=== PATIENT | female | born 1990 | race Caucasian/White ===

== ENCOUNTER 2016-10-23 16:54 | Emergency (ER) | payer MEDICAID, OTHER ==
[~2016-10-23] VITALS: Ht 157.5 cm; Wt 47.0 kg
[2016-10-23 18:46] VITALS: Ht 157.5 cm; Wt 47.0 kg
--- NOTE | 2016-10-23 20:07 | ERD ---
ER Documentation Chief Complaint Date/Time DATE: 10/23/16 TIME: 20:04 Chief Complaint vaginal bleed x 1 wk, 3 wks/6days , referred for US, denies pain. HPI Patient is a 25-year-old female, approximately 3 weeks , , who presents to the emergency department with vaginal bleeding. Patient was referred here by her FRIEND OF THE COURT DrNoble Van, for an ultrasound. She states that she's been having vaginal bleeding for one week now. Patient reports using approximately 3 liners per day. She states that her bleeding is light red color. Patient denies any abdominal pain, pelvic pain, nausea, vomiting, pain with urination, fever, chills. LMP= 09/17/16. ROS All systems reviewed and are negative except as per history of present illness. Allergies Allergies: Coded Allergies: No Known Allergy (Unverified , 10/23/16) PMhx/Soc Medical and Surgical Hx: pt denies Medical Hx, pt denies Surgical Hx History of Surgery: No Anesthesia Reaction: No Hx Neurological Disorder: No Hx Respiratory Disorders: No Hx Cardiac Disorders: No Hx Psychiatric Problems: No Hx Miscellaneous Medical Probl: No Hx Alcohol Use: No Hx Substance Use: No Hx Tobacco Use: No FmHx Family History: No diabetes Physical Exam Vitals Vital Signs Date Time Temp Pulse Resp B/P Pulse Ox O2 Delivery O2 Flow Rate FiO2 10/23/16 18:46 99.1 83 18 123/79 100 Physical Exam GENERAL: Well-developed, well-nourished female. Appears in no acute distress. HEAD: Normocephalic, atraumatic. EYES: Pupils are equally reactive bilaterally. EOMs grossly intact. No conjunctival erythema. ENT: Moist mucous membranes. No uvula deviation. No kissing tonsils. NECK: Supple. LUNG: Clear to auscultation bilaterally. No rhonchi, wheezing, rales or coarse breath sounds. HEART: Regular rate and rhythm. No murmurs, rubs or gallops. ABDOMEN: No scars, ecchymosis or rashes noted. Soft, nontender, and nondistended. Positive bowel sounds in all four quadrants. No rebound tenderness , no guarding. (-) McBurneys point tenderness. No CVA tenderness. EXTREMITIES: Equal pulses bilaterally. No peripheral clubbing, cyanosis or edema. No unilateral leg swelling. NEUROLOGIC: Alert and oriented. Moving all four extremities without any difficulty. Normal speech. Steady gait. SKIN: Normal color. Warm and dry. No rashes or lesions. Result Diagram: 10/23/162014 Results 24 hrs Laboratory Tests Test 10/23/16 20:08 10/23/16 20:15 Urine Bacteria FEW Urine Bilirubin NEGATIVE Urine Clarity SLIGHTLY CLOUDY Urine Color YELLOW Urine Glucose NEGATIVE% Urine Hemoglobin 3+ Urine Ketones 40 Urine Leukocyte Esterase NEGATIVE Urine Microscopic RBC 2-5/HPF Urine Microscopic WBC 0-2/HPF Urine Mucus FEW Urine Nitrite NEGATIVE Urine Specific [place] 1.025 Urine Squamous Epithelial Cells MODERATE Urine Total Protein NEGATIVE Urine Urobilinogen 0.2 E.U./dL Urine pH 5.5 Basophils # 0.010^3/ul Basophils % 0.3% Beta HCG, Quantitative 619859.0mIU/ml Eosinophils # 0.110^3/ul Eosinophils % 0.7% Hematocrit 38.7% Hemoglobin 13.1g/dl Lymphocytes # 2.710^3/ul Lymphocytes % 24.8% Mean Corpuscular Hemoglobin 29.9pg Mean Corpuscular Hemoglobin Concent 33.9g/dl Mean Corpuscular Volume 88.1fl Mean Platelet Volume 7.9fl Monocytes # 0.810^3/ul Monocytes % 7.1% Neutrophils # 7.410^3/ul Neutrophils % 67.1% Nucleated Red Blood Cells # 0.010^3/ul Nucleated Red Blood Cells % 0.0/100WBC Platelet Count 34954^3/UL Red Blood Count 4.3910^6/ul Red Cell Distribution Width 12.1% White Blood Count 11.010^3/ul Procedures/MDM ED COURSE: The patient was stable throughout ED course. I kept the patient and/or family informed of laboratory and diagnostic imaging results throughout the ED course. DIAGNOSTIC IMAGING: Read by radiologist. DIAGNOSTIC IMAGING REPORT Patient: SIDNEY CALVERT : 1990 Age: 25 Sex: F MR #: [id number] DOS: 10/23/162000 Ordering MD: MENDEZ NUÑEZ PA-C Location: [facility] Room/Bed: PROCEDURE: US OB. CLINICAL INDICATION: Vaginal bleeding. . TECHNIQUE: Transabdominal and transvaginal views of the pelvis are available for review. COMPARISON: No prior studies are available for comparison. FINDINGS: [place]-rump length: 0.79 cm heart rate: 141 bpm Gestational sac: 2.28 cm Ultrasound estimated gestational age: 7 weeks Tiny crescentic hypoechoic area adjacent to the gestational sac likely reflects a small subchorionic hemorrhage estimated at 0.8 x 0.2 cm. No ovarian or adnexal mass lesion is seen. There is no free fluid. RPTAT:HJJR IMPRESSION: 1. Single viable intrauterine with an estimated gestational age of 7 weeks, the estimated date of delivery 06/11/2017. 2. Small subchorionic hemorrhage explains the patient's provided history. Jesus Shaw Physician Date Time Electronically viewed and signed by Jesus Shaw Physician on 10/23/2016 20:38 JR/ CC: MENDEZ NUÑEZ PA-C MEDICAL DECISION MAKING: This is a 25-year-old female who presents to the emergency department with vaginal bleeding 1 week. Vital signs were reviewed. Patient was afebrile. Patient was hemodynamically stable. Urine test was positive. Quantitative b-HCG was 459918. Patient was O positive. CBC showed no evidence of severe anemia. WBC count was 11.0. Urine was negative was leukocyte esterase , negative nitrate, positive moderate squamous epithelium. Urine is most likely a contaminated specimen. Pelvic US showed Single viable intrauterine with an estimated gestational age of 7 weeks, the estimated date of delivery . Small subchorionic hemorrhage explains the patient's provided history. Given these findings, the patients presentation is most consistent with IUP with small subchorionic hemorrhage. I have a much lower clinical concern for ectopic , ruptured ectopic , molar , spontaneous , incomplete , complete , demise, anembyronic . Patient will need to follow-up with her FRIEND OF THE COURT for further management of her subchorionic hemorrhage. Repeat ultrasound advised. DISCHARGE: At this time, patient is stable for discharge and outpatient management. I had a conversation at length with the patient about the concerns of vaginal bleeding during the 1st trimester of . Patient and/or family understands that her vaginal bleeding can be a normal finding or a sign of miscarriage. I have instructed the patient to follow-up with her OBGYN for further monitoring including a repeat b-HCG level. I have instructed the patient to promptly return to the ER at any time for any new or worsening symptoms including increased pain, nausea, vomiting, continued bleeding, weakness, syncope or fever. The patient and/or family expressed understanding of and agreement with this plan. All questions were answered. Home care instructions were provided. Departure Diagnosis: Primary Impression: Subchorionic hematoma Fetus number: single or unspecified fetus Trimester: first trimester Qualified Code: O41.8X10 - Subchorionic hematoma, first trimester, not applicable or unspecified fetus Additional Impressions: Intrauterine Vaginal bleeding in patient at less than 20 weeks gestation Condition: Stable Patient Instructions: Bleeding During Early Referrals: [facility] YOU HAVE RECEIVED A MEDICAL SCREENING EXAM AND THE RESULTS INDICATE THAT YOU DO NOT HAVE A CONDITION THAT REQUIRES URGENT TREATMENT IN THE EMERGENCY DEPARTMENT. FURTHER EVALUATION AND TREATMENT OF YOUR CONDITION CAN WAIT UNTIL YOU ARE SEEN IN YOUR DOCTORS OFFICE WITHIN THE NEXT 1-2 DAYS. IT IS YOUR RESPONSIBILITY TO MAKE AN APPOINTMENT FOR FOLOW-UP CARE. IF YOU HAVE A PRIMARY DOCTOR --you should call your primary doctor and schedule an appointment IF YOU DO NOT HAVE A PRIMARY DOCTOR YOU CAN CALL OUR PHYSICIAN REFERRAL HOTLINE AT IF YOU CAN NOT AFFORD TO SEE A PHYSICIAN YOU CAN CHOSE FROM THE FOLLOWING [facility] [address] [facility] [address] [facility] [address] [facility] [address] [facility] [address] [facility]. [facility]. [address] [facility] YOU HAVE RECEIVED A MEDICAL SCREENING EXAM AND THE RESULTS INDICATE THAT YOU DO NOT HAVE A CONDITION THAT REQUIRES URGENT TREATMENT IN THE EMERGENCY DEPARTMENT. FURTHER EVALUATION AND TREATMENT OF YOUR CONDITION CAN WAIT UNTIL YOU ARE SEEN IN YOUR DOCTORS OFFICE WITHIN THE NEXT 1-2 DAYS. IT IS YOUR RESPONSIBILITY TO MAKE AN APPOINTMENT FOR FOLOW-UP CARE. IF YOU HAVE A PRIMARY DOCTOR --you should call your primary doctor and schedule and appointment IF YOU DO NOT HAVE A PRIMARY DOCTOR YOU CAN CALL OUR PHYSICIAN REFERRAL HOTLINE AT . IF YOU CAN NOT AFFORD TO SEE A PHYSICIAN YOU CAN CHOSE FROM THE FOLLOWING [facility] INSTITUTIONS[facility] [address] [place] [address] [facility] [address] [place] [address] [facility] [address] [place] [address] [address] [place] [address] [facility] [address] [place] [address] OFFICE FAX [facility] [address] [place] [address] [facility] [address] [place] [address] [address] [facility] [address] [facility], [address] [address] [facility] [address] [place] [address] [facility] [address] [place] [address] [phone] [facility] [address] [address], [facility] [address] [address] [address] [facility]. [address], [facility] [address] [address] [address] [place], [place] [address] Additional Instructions: Llame al doctor MAANA y channing whit DAO PARA DENTRO DE 1-2 SHEPHERD.Dgale a la secretaria que nosotros le instruimos hacer esta dao.Avise o llame si yo condicin se empeora antes de la dao. Regresa aqui si peor o no mejor. Volver a 2 poretr para repetir el nivel BHCG y ultrasonido. MENDEZ UNÑEZ PA-C Oct 23, 2016 20:07
--- NOTE | 2016-10-23 20:38 | RADRPT ---
PROCEDURE: US OB. CLINICAL INDICATION: Vaginal bleeding. . TECHNIQUE: Transabdominal and transvaginal views of the pelvis are available for review. COMPARISON: No prior studies are available for comparison. FINDINGS: [place]-rump length:0.79 cm heart rate:141 bpm Gestational sac:2.28 cm Ultrasound estimated gestational age:7 weeks Tiny crescentic hypoechoic area adjacent to the gestational sac likely reflects a small subchorionic hemorrhage estimated at 0.8 x 0.2 cm. No ovarian or adnexal mass lesion is seen. There is no free fluid. RPTAT:HJJR IMPRESSION: 1. Single viable intrauterine with an estimated gestational age of 7 weeks, the estimated date of delivery 06/11/2017. 2. Small subchorionic hemorrhage explains the patient's provided history. Physician Akbar Date Time Electronically viewed and signed by Physician Akbar on 10/23/2016 20:38 /
[2016-10-23 20:39] LABS: ADD UMIC YES; URINE BILIRUBIN (Dip) NEGATIVE (NEGATIVE); URINE BLOOD (Dip) 3+ (NEGATIVE); URINE GLUCOSE (Dip) NEGATIVE (NEGATIVE); URINE KETONES (Dip) 40 (NEGATIVE); URINE LEUKOCYTE ESTERASE (Dip) NEGATIVE (NEGATIVE); URINE NITRITE (Dip) NEGATIVE (NEGATIVE); URINE TOTAL PROTEIN (Dip) NEGATIVE (NEGATIVE); URINE UROBILINOGEN (Dip) 0.2 E.U./dL (0.1-1.0)
[2016-10-23 20:41] LABS: BASOPHILS % 0.3 % (0.0-2.0); CONDITION 1; EOSINOPHILS # 0.1 10^3/ul (0.0-0.5); EOSINOPHILS % 0.7 % (0.0-7.0); HEMATOCRIT 38.7 % (37.0-47.0); HEMOGLOBIN 13.1 g/dl (12.0-16.0); LYMPHOCYTES # 2.7 10^3/ul (0.8-2.9); LYMPHOCYTES % 24.8 % (15.0-51.0); MEAN CORPUSCULAR HEMOGLOBIN 29.9 pg (29.0-33.0); MEAN CORPUSCULAR HGB CONC 33.9 g/dl (32.0-37.0); MEAN CORPUSCULAR VOLUME 88.1 fl (82.0-101.0); MEAN PLATELET VOLUME 7.9 fl (7.4-10.4); MONOCYTE # 0.8 10^3/ul (0.3-0.9); MONOCYTES % 7.1 % (0.0-11.0); NEUTROPHIL # 7.4 10^3/ul (1.6-7.5); NEUTROPHILS % 67.1 % (39.0-77.0); PLATELET COUNT 291 10^3/UL (140-440); RED BLOOD COUNT 4.39 10^6/ul (4.20-5.40); RED CELL DISTRIBUTION WIDTH 12.1 % (11.5-14.5)
[2016-10-23 20:46] LABS: URINE COLOR YELLOW (YELLOW)
[2016-10-23 20:47] LABS: BACTERIA,URINE FEW; MUCUS,URINE FEW; SQUAMOUS EPITHELIAL CELL,UR MODERATE
== END 2016-10-23 22:12 | disposition home or self-care (01) ==
LOC: FTE 16:54
DX: O20.9 Hemorrhage in early pregnancy, unspecified (principal); Z3A.01 Less than 8 weeks gestation of pregnancy
CPT/HCPCS: 76801; 81001; 84702; 85025; 86900; 86901; Z7502; 81003

== ENCOUNTER 2017-06-04 16:45 | Inpatient (IN) | payer MEDICAID ==
[~2017-06-04] VITALS: Ht 157.5 cm; Wt 61.4 kg
--- NOTE | 2017-06-04 19:47 | RADRPT ---
PROCEDURE: US OB Limited for Estimated Weight. CLINICAL INDICATION: 26 years of age, female. Induction. Estimated weight. TECHNIQUE: Multiple sonographic images of the pelvis were obtained. Transabdominal imaging only w as performed. The images were reviewed on a PACS workstation. Image quality: Satisfactory. COMPARISON: No prior studies are available for comparison. FINDINGS: [place] : Number of fetuses: 1 GENERAL EVALUATION: Cardiac activity: Present. FHR 143 bpm Presentation: Cephalic Placenta: Placenta site: Anterior. No evidence of placental previa. Placental grade 2 DATING: Clinical PEDRO: June 11, 2017 EGA based on PEDRO: 39 weeks 0 days BIOMETRY: BPD = 9.6 cm , 39 weeks 0 days HC = 34 cm , 39 weeks 0 days AC = 35.1 cm , 39 weeks 0 days FL = 7.6 cm , 39 weeks 0 days Composite sonographic age: 39 weeks 0 days plus or minus 3 weeks Estimated due date by ultrasound measurements: June 11, 2017 EFW 3661 grams, 70 th percentile. ANATOMY: Not evaluated. IMPRESSION: 1. Single living fetus in cephalic presentation. 2. Clinical gestation age of 39 weeks 0 days and clinical PEDRO June 11, 2017 are concordant with the composite sonographic age . 3. Estimated weight is 3661 grams that is at the 70th percentile for gestational age. 4. Anterior placenta grade 2 RPTAT: HCTS Physician Santana Date Time Electronically viewed and signed by Physician Santana on 06/04/2017 19:47 CS/
[2017-06-04] MEDS ORDERED: OXYTOCIN 30 UNITS/LR 500 ML IV PRN (21:00)
[2017-06-04] MEDS ORDERED: METHYLERGONOVINE 0.2 MG INJ IM PRN (21:00)
[2017-06-04] MEDS ORDERED: MISOPROSTOL 200 MCG TAB PR PRN (21:00)
[2017-06-04] MEDS ORDERED: OXYTOCIN 30 UNITS/LR 500 ML IV SCH ×3 (21:00)
[2017-06-04] MEDS ORDERED: LIDOCAINE 1% (MPF) 30 ML INJ INJ PRN (21:00)
[2017-06-04] MEDS ORDERED: BUTORPHANOL 2 MG INJ IV PRN ×2 (21:00)
[2017-06-04] MEDS ORDERED: CARBOPROST 250 MCG INJ IM PRN (21:00)
[2017-06-04] MEDS ORDERED: IBUPROFEN 600 MG TAB PO PRN (21:00)
[2017-06-04] MEDS: LACTATED RINGER'S 1,000 ML IV SCH (22:05)
[2017-06-04 22:33] LABS: BASOPHILS % 0.2 % (0.0-2.0); EOSINOPHILS # 0.1 10^3/ul (0.0-0.5); EOSINOPHILS % 0.8 % (0.0-7.0); HEMATOCRIT 35.7 % (37.0-47.0); HEMOGLOBIN 11.9 g/dl (12.0-16.0); LYMPHOCYTES # 2.1 10^3/ul (0.8-2.9); LYMPHOCYTES % 23.5 % (15.0-51.0); MEAN CORPUSCULAR HEMOGLOBIN 29.5 pg (29.0-33.0); MEAN CORPUSCULAR HGB CONC 33.3 g/dl (32.0-37.0); MEAN CORPUSCULAR VOLUME 88.4 fl (82.0-101.0); MEAN PLATELET VOLUME 9.9 fl (7.4-10.4); MONOCYTE # 0.6 10^3/ul (0.3-0.9); MONOCYTES % 6.5 % (0.0-11.0); NEUTROPHIL # 6.1 10^3/ul (1.6-7.5); NEUTROPHILS % 68.6 % (39.0-77.0); PLATELET COUNT 282 10^3/UL (140-415); RED BLOOD COUNT 4.04 10^6/ul (4.20-5.40); RED CELL DISTRIBUTION WIDTH 12.7 % (11.5-14.5)
[2017-06-04 22:51] LABS: INR 0.87; PARTIAL THROMBOPLASTIN TIME 27.2 Sec (25.0-35.0); PROTIME 11.8 Sec (12.2-14.2); PT RATIO 0.9
[2017-06-05 00:06] VITALS: Ht 157.5 cm; Wt 61.4 kg
[2017-06-05 00:09] VITALS: BP 113/61; PULSE 70; RESP 18
[2017-06-05] MEDS: LACTATED RINGER'S 1,000 ML IV SCH ×3 (03:34→17:40)
[2017-06-05] MEDS ORDERED: FENTAnyl 2MCG/ML-ROPIV 0.2% 100 ML ONE (11:25)
[2017-06-05] MEDS ORDERED: DIPHENHYDRAMINE 50 MG INJ IV PRN (12:30)
[2017-06-05] MEDS ORDERED: FENTAnyl 2MCG/ML-ROPIV 0.2% 100 ML BAG EPI SCH (12:30)
[2017-06-05] MEDS ORDERED: ONDANSETRON 4 MG INJ IV PRN (12:30)
[2017-06-05] MEDS ORDERED: NALOXONE (0.4 MG/ML) INJ IV PRN (12:30)
[2017-06-05] MEDS ORDERED: DEXTROSE 5%-LR 1,000 ML IV SCH (13:30)
--- NOTE | 2017-06-05 19:33 | LDN ---
Date/Time of Note Date/Time of Note DATE: 06/05/17 TIME: 19:33 Delivery Summary Weeks of Gestation 39+ Placenta Delivered: Spontaneously Meconium: none Episiotomy: No Perineal laceration: 2 Anesthesia type: Local Sponge & Needle done & correct: Yes All needle counts correct: Yes Any foreign bodies felt in the: No Problems: Infant Delivery Information Sex Sex: female Apgars 1 Minute: 8 5 Minute: 9 Suctioning Nose & mouth suctioned at maria t: Yes Delee suction performed: Yes Umbilical Cord Umbilical cord with: 3 Vessels Cord presentations: no nuchal cord Mother & Baby Disposition Disposition Mom & Baby to Maternity; Good: Yes Baby to NICU: No SOPHIA BAEZ M.D. Jun 05, 2017 19:33
--- NOTE | 2017-06-05 19:33 | HP ---
Date/Time of Note Date/Time of Note DATE: 06/05/17 TIME: 19:32 OB - History Hx of Present Free Text/Dictation 39+ : 1 Para: 0 Care: Good Care Ultrasounds: Normal mid trimester US Obstetrical Complications: None Medical Complications: None Past Family/Social History * Past Medical, Surgical, Family and Obstetric Histories reviewed from chart. OB Admission Exam Vital Signs Vital Signs Vital Signs Date Time Temp Pulse Resp B/P Pulse Ox O2 Delivery O2 Flow Rate FiO2 06/05/17 00:09 98.4 70 18 113/61 98 Room Air Physical Exam Abdomen: WNL Extremities: Normal Cervical Dilatation: 2cm Effacement: 75% Station: -1 Membranes: Intact Heart Rate: 140's Accelerations: Accelerations Present Varibility: Moderate Contractions on Admission: 6-10 Minutes Apart Last 72 hours Lab Results CBC & BMP 06/04/17 21:45 OB Assessment/Plan Reason for admission: observation Plan: Expectant Management Induction Method: per Pitocin Protocol SOPHIA BAEZ M.D. Jun 05, 2017 19:33
[2017-06-05 22:47] VITALS: BP 122/64; PULSE 74; RESP 20
[2017-06-06] VITALS: BP 126/73; PULSE 80; RESP 20
[2017-06-06] MEDS ORDERED: OXYCODONE/ASPIRIN (4.88/325) TAB PO PRN (00:30)
[2017-06-06] MEDS ORDERED: CARBOPROST 250 MCG INJ IM PRN (00:30)
[2017-06-06] MEDS ORDERED: OXYTOCIN 30 UNITS/LR 500 ML IV PRN (00:30)
[2017-06-06] MEDS ORDERED: METHYLERGONOVINE 0.2 MG INJ IM PRN (00:30)
[2017-06-06] MEDS ORDERED: SENNA/DOCUSATE NA (8.6MG/50MG) TAB PO PRN (00:30)
[2017-06-06] MEDS ORDERED: LACTATED RINGER'S 1,000 ML IV* SCH (00:30)
[2017-06-06] MEDS ORDERED: MISOPROSTOL 200 MCG TAB PR PRN (00:30)
[2017-06-06] MEDS ORDERED: ZOLPIDEM 5 MG TAB PO PRN (00:30)
[2017-06-06] MEDS: BENZOCAINE 20% 56 ML SPRAY TOP PRN (01:12)
[2017-06-06] MEDS: WITCH HAZEL/GLYCERIN PAD PR PRN (01:12)
[2017-06-06] MEDS: IBUPROFEN 600 MG TAB PO SCH ×4 (01:12→17:55)
[2017-06-06] MEDS: LANOLIN 7 GM TUBE TOP PRN (01:13)
[2017-06-06 04:00] VITALS: BP 106/51; PULSE 73; RESP 20
[2017-06-06 06:49] LABS: BASOPHILS % 0.1 % (0.0-2.0); EOSINOPHILS % 0.3 % (0.0-7.0); HEMATOCRIT 26.9 % (37.0-47.0); LYMPHOCYTES # 2.1 10^3/ul (0.8-2.9); LYMPHOCYTES % 13.7 % (15.0-51.0); MEAN CORPUSCULAR HEMOGLOBIN 30.1 pg (29.0-33.0); MEAN CORPUSCULAR HGB CONC 33.5 g/dl (32.0-37.0); MONOCYTE # 1.3 10^3/ul (0.3-0.9); MONOCYTES % 8.4 % (0.0-11.0); NEUTROPHILS % 77.1 % (39.0-77.0); PLATELET COUNT 187 10^3/UL (140-415); RED BLOOD COUNT 2.99 10^6/ul (4.20-5.40); RED CELL DISTRIBUTION WIDTH 13.1 % (11.5-14.5); WHITE BLOOD COUNT 15.6 10^3/ul (4.8-10.8)
[2017-06-06 08:00] VITALS: BP 109/65; PULSE 81; RESP 18
[2017-06-06] MEDS: SENNA/DOCUSATE NA (8.6MG/50MG) TAB PO SCH ×2 (10:27→21:45)
[2017-06-06 16:00] VITALS: BP 106/59; PULSE 85; RESP 19
[2017-06-06 19:35] VITALS: BP 111/53; PULSE 68; RESP 18
[2017-06-07] MEDS: IBUPROFEN 600 MG TAB PO SCH ×3 (00:14→12:07)
[2017-06-07 04:15] VITALS: BP 103/50; PULSE 63; RESP 18
[2017-06-07 08:05] VITALS: BP 105/58; PULSE 73; RESP 19
[2017-06-07] MEDS: SENNA/DOCUSATE NA (8.6MG/50MG) TAB PO SCH (09:00)
[2017-06-07] MEDS ORDERED: DIPHTH/TET/ACEL PERTUSS (ADULT) 0.5 ML VIAL IM* ONE (09:00)
--- NOTE | 2017-06-07 09:57 | QN ---
Documentation Comment Late Entry Note: 06/06/17 PPD#1 is stable afebrile tlerates diet No VB + BM +Voids VS stable Gen NAD Abd soft NT ND Genitalia No blood at perinium --->discharge Home tomorrow SOPHIA BAEZ M.D. Jun 07, 2017 09:57
--- NOTE | 2017-06-07 09:58 | DS ---
Date/Time of Note Date/Time of Note DATE: 06/07/17 TIME: 09:57 Discharge Summary Admission/Discharge Info Admit Date/Time Jun 04, 2017 at 16:45 Discharge Date/Time May Discharge Diagnosis Patient Condition: Good Procedures Vaginal delivery Hospital Course Uneventful Primary Care Provider Care Physician SOPHIA Quijano M.D. Jun 07, 2017 09:58
[2017-06-07] MEDS: LANOLIN 7 GM TUBE TOP PRN (13:48)
[2017-06-07] MEDS: BENZOCAINE 20% 56 ML SPRAY TOP PRN (13:48)
[2017-06-07] MEDS: WITCH HAZEL/GLYCERIN PAD PR PRN (13:48)
== END 2017-06-07 14:10 | disposition home or self-care (01) | DRG 775 ==
LOC: L-D 16:45 → OBG 06-05 22:25
PROVIDERS: ADMIT Obstetrics & Gynecology; ATTEND Obstetrics & Gynecology
PROC: 10E0XZZ Delivery of Products of Conception, External Approach (ICD-10-PCS; principal; 2017-06-05)
PROC: 0KQM0ZZ Repair Perineum Muscle, Open Approach (ICD-10-PCS; 2017-06-05)
PROC: 3E033VJ Introduction of Other Hormone into Peripheral Vein, Percutaneous Approach (ICD-10-PCS; 2017-06-05)
DX: O70.1 Second degree perineal laceration during delivery (principal); Z37.0 Single live birth; Z3A.39 39 weeks gestation of pregnancy
CPT/HCPCS: 62319; 76815; 85025; 85610; 85730; 86592; 86900; 86901; 90715; 99464; A4310; J0595; J2590; J3010; J7120; J7121